=== PATIENT | female | born 1980 | race African-American/Black ===

== ENCOUNTER 2018-02-13 08:45 | Emergency (ER) | payer MEDICARE ==
[2018-02-13] MEDS: predniSONE 10 MG TABLET PO (09:20)
[2018-02-13] MEDS: EPINEPHrine 1 MG/ML VIAL SQ (09:21)
== END 2018-02-13 10:28 | disposition home or self-care (01) ==
LOC: ER 08:45
DX: L50.0 Allergic urticaria (principal); T43.595A Adverse effect of other antipsychotics and neuroleptics, initial encounter; Y92.89 Other specified places as the place of occurrence of the external cause; Z88.1 Allergy status to other antibiotic agents; Z88.5 Allergy status to narcotic agent; Z91.010 Allergy to peanuts; Z88.8 Allergy status to other drugs, medicaments and biological substances; Z91.018 Allergy to other foods
CPT/HCPCS: 96372; 99283-25; J0171; J7512